=== PATIENT | male | born 2000 | race American Indian/Alaskan Native ===

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

== ENCOUNTER 2021-02-24 14:03 | Emergency (ER) | payer MEDICAID ==
[2021-02-24 15:39] VITALS: BP 114/72; PULSE 77
--- NOTE | 2021-02-24 15:54 | EDM.PDOC ---
<Vitaly Purdy Windy - Last Filed: 02/24/21 15:57> ED HPI GENERAL MEDICAL PROBLEM - General Chief Complaint: ENT Problem Stated Complaint: EAR PAIN RIGHT, NOSE PAIN Time Seen by Provider: 02/24/21 15:52 - History of Present Illness INITIAL COMMENTS - FREE TEXT/NARRATIVE: 20 y/o M c/o R ear pain x 1 weeks. Pt states he has had a sinus congestion issue for a week which has then progressed to R ear pain last week. Has used tylenol and motrin for pain control. Had tried to get into see a clinic doctor but isnt able to get in until next week. Denies fever, cough, chills, drugs, etoh, neck pn, diff swallowing, cp, db. Onset: Gradual Duration: Week(s): Location: Reports: Other (R ear) Quality: Reports: Ache Severity: Moderate Improves with: Reports: None Worsens with: Reports: None Associated Symptoms: Reports: No Other Symptoms right ear Pain Score (Numeric/FACES): 4 - Related Data Allergies Allergy/AdvReac Type Severity Reaction Status Date / Time No Known Allergies Allergy Verified 02/24/21 15:39 Home Meds: Home Meds Acetaminophen [Tylenol Extra Strength] 1,000 mg PO Q6HR 03/11/17 [History] Past Medical History - Past Health History Medical/Surgical History: Denies Medical/Surgical History HEENT History: Reports: Sinusitis Cardiovascular History: Reports: None Respiratory History: Reports: None Gastrointestinal History: Reports: None Genitourinary History: Reports: None Musculoskeletal History: Reports: None Neurological History: Reports: None Psychiatric History: Reports: None Endocrine/Metabolic History: Reports: None Hematologic History: Reports: None Immunologic History: Reports: None Oncologic (Cancer) History: Reports: None Dermatologic History: Reports: None - Infectious Disease History Infectious Disease History: Reports: None - Past Surgical History Head Surgeries/Procedures: Reports: None Social & Family History - Family History Family Medical History: No Pertinent Family History - Tobacco Use Tobacco Use Status *Q: Never Tobacco User - Caffeine Use Caffeine Use: Reports: None - Recreational Drug Use Recreational Drug Use: No ED ROS ENT - Review of Systems Review Of Systems: Comprehensive ROS is negative, except as noted in HPI. ED EXAM, ENT - Physical Exam Exam: See Below Exam Limited By: No Limitations General Appearance: Alert, No Apparent Distress Eye Exam: Bilateral Eye: PERRL Ears: Other (normal L ear and L TM. Bulging erythematous R ear with diminshed light reflex) Nose: Other (swollen nasal turbinates) Mouth/Throat: Normal Inspection, Normal Gums, Normal Lips, Normal Oropharynx, Normal Teeth Skin: Warm, Dry, Intact Departure - Departure Time of Disposition: 15:53 Disposition: Home, Self-Care 01 Condition: Good Clinical Impression: Otitis media Qualifiers: Otitis media type: unspecified Chronicity: acute Qualified Code(s): H66.90 - Otitis media, unspecified, unspecified ear - Discharge Information *PRESCRIPTION DRUG MONITORING PROGRAM REVIEWED*: Not Applicable *COPY OF PRESCRIPTION DRUG MONITORING REPORT IN PATIENT BRITTNI: Not Applicable Instructions: Otitis Media, Adult, [id number] Forms: ED Department Discharge Additional Instructions: RX Augmentin. Use tylenol and motrin for pain as needed. If any new symptoms or concerns develop contact your primary care facility or return to the ER> Sepsis Event Note (ED) - Evaluation Sepsis Screening Result: No Definite Risk <Shant Fairbanks - Last Filed: 02/24/21 16:11> Course - Vital Signs Last Recorded V/S: Last Vital Signs Temp 98.2 F 02/24/21 15:35 Pulse 77 02/24/21 15:35 Resp 20 02/24/21 15:35 BP 114/72 02/24/21 15:35 Pulse Ox 97 02/24/21 15:35 - Re-Assessments/Exams Free Text/Narrative Re-Assessment/Exam: 02/24/21 16:10 The patient was also evaluated by myself. I agree with the documentation and treatment as documented. Sepsis Event Note (ED) - Focused Exam Vital Signs: Vital Signs Temp Pulse Resp BP Pulse Ox 02/24/21 15:35 98.2 F 77 20 114/72 97
== END 2021-02-24 15:56 | disposition home or self-care (01) ==
LOC: DL.ED 14:03
DX: H66.91 Otitis media, unspecified, right ear (principal)
CPT/HCPCS: 99282

== ENCOUNTER 2025-02-25 19:30 | Emergency (ER) | payer SELFPAY ==
[2025-02-25 19:50] VITALS: BP 120/71; PULSE 73
[2025-02-25] MEDS: Ondansetron 4 MG Tab.DIS PO ONE (20:03)
[2025-02-25] MEDS: Take Home: Ondansetron 4 MG Tab.DIS, 5 Tab Pack PO ONE (21:15)
== END 2025-02-25 21:19 | disposition home or self-care (01) ==
LOC: DL.ED 19:30
DX: B34.9 Viral infection, unspecified (principal); Z79.899 Other long term (current) drug therapy
CPT/HCPCS: 87081; 87430; 99284; A9270; Q0162; 99282